=== PATIENT | male | born 1955 | race Caucasian/White ===

== ENCOUNTER 2017-10-05 09:40 | Inpatient (IN) | payer OTHER ==
[2017-10-05 10:31] LABS: Absolute Lymphocytes (CBC) 1.3 K/uL (0.7-4.9); Absolute Monocytes 0.5 K/uL (0.1-1.3); Absolute Neutrophil 6.6 K/uL (1.8-8.0); Basophils % 0.9 % (0-1.3); Hematocrit 50.2 % (39.6-49.0); Lymphocytes % 14.8 % (15.3-44.8); MCH 31.7 pg (27.0-35.0); MCV 97.1 fL (80-100); MPV 9.4 fL (7.6-11.3); Monocytes % 6.3 % (3.3-12.3); RBC Red Blood Cell Count 5.17 M/uL (4.33-5.43)
[2017-10-05 10:43] LABS: Protime INR 0.98
[2017-10-05] MEDS ORDERED: ASPIRIN 81 MG CHEWABLE TABLET ONE (10:52)
[2017-10-05] MEDS ORDERED: NA CHLORIDE 0.9% 1,000 ML ONE (10:53)
[2017-10-05] MEDS ORDERED: ONDANSETRON 4 MG/2 ML VIAL ONE (10:53)
[2017-10-05] MEDS ORDERED: MORPHINE 4 MG/ML SYR ONE (10:53)
--- NOTE | 2017-10-05 11:14 | RAD REPORT ---
EXAM DESCRIPTION: RAD - Chest Single View - 10/05/2017 10:38 am CLINICAL HISTORY: Chest pain, dyspnea COMPARISON: None. TECHNIQUE: AP portable chest image was obtained 1028 hours . FINDINGS: No peripheral mass or consolidation. No acute failure finding. CABG surgical changes are p resent. Pacemaker/ defibrillator is in place. Mild cardiomegaly is present without vascular engorgeme nt. No measurable pleural effusion and no pneumothorax. No gross bony abnormality seen. No acute aort ic findings suspected. IMPRESSION: Mild cardiomegaly without additional findings of acute failure or volume overload. No acute lung parenchymal finding. The
[2017-10-05 11:29] LABS: CKMB Creatine Kinase MB 2.1 ng/ml (0.3-4.0)
[2017-10-05 11:35] LABS: Albumin 4.9 g/dL (3.2-5.5); Bilirubin Direct 0.2 mg/dL (0-0.2); Bilirubin Total 0.8 mg/dL (0.3-1.2); Magnesium 1.8 mg/dL (1.8-2.5); Protein, Total 8.4 g/dL (6.0-8.3)
[2017-10-05 11:48] LABS: Potassium 5.5 mEq/L (3.6-5.0)
[2017-10-05 12:00] LABS: Urine Blood NEGATIVE (NEG); Urine Glucose NEGATIVE (NEG); Urine Protein NEGATIVE (NEG); Urine Specific Gravity 1.015 (1.005-1.030)
--- NOTE | 2017-10-05 12:17 | RAD REPORT ---
EXAM DESCRIPTION: CT - Chest For Pe Angio - 10/05/2017 11:51 am CLINICAL HISTORY: Chest pain, shortness of breath COMPARISON: Chest films same date TECHNIQUE: Dynamically enhanced 3 mm thick images of the chest were obtained during administration o f approximately 150mL Isovue 370 IV contrast. Coronal and oblique reconstruction images were generate d and reviewed. Exam utilizes a protocol to evaluate the pulmonary arterial tree. All CT scans are performed using dose optimization technique as appropriate and may include automated exposure control or mA/KV adjustment according to patient size. FINDINGS: No pulmonary emboli are identified. The aorta as imaged shows no acute or suspicious finding. No pericardial thickening or effusion. Card iomegaly is present particularly left ventricle enlargement. Pacemaker/defibrillator is in place. No infiltrate or mass in the lung parenchyma. No pleural effusion or pleural thickening. No mediastinal or hilar suspicious masses. No esophageal dilatation or mass identifiable. No rib lesi on or chest wall mass abnormality. Sternotomy wires are in place. There is a chronic fibrous union al anton the sternotomy site. IMPRESSION: No pulmonary emboli identified. No acute pleural or parenchymal process seen. Cardiomegaly with left ventricular enlargement.No pericardial effusion. No rib lesion, chest wall abnormality or other finding to explain left-sided chest pain.
--- NOTE | 2017-10-05 12:33 | EDPHYS ---
Physician Documentation [facility] Name: Umair Brown Age: 62 yrs Sex: Male : 1955 Arrival Date: 10/05/2017 Time: 09:46 Bed 4 Private MD: Todd Ochoa ED Physician Tyson Mcnulty HPI: 10/05 10:30 This 62 yrs old Male presents to ER via Ambulatory with complaints of Chest kim Pain, Back Pain, Shortness Of Breath. 10:30 The patient or guardian reports chest pain that is located primarily in the anterior kim chest wall, bilaterally. Historical: - Allergies: 09:57 PENICILLINS; hj - Home Meds: 09:57 Plavix 75 mg Oral tab 1 tab once daily [Active]; atorvastatin 80 mg oral tab 1 tab once hj daily [Active]; potassium chloride 20 mEq Oral TbTQ 1 tab once daily [Active]; metoprolol tartrate 50 mg Oral tab 1 tab 2 times per day [Active]; isosorbide dinitrate 40 mg Oral TbER 1 tab 2 times per day [Active]; furosemide 20 mg Oral tab 1 tab 2 times per day [Active]; - PMHx: 09:57 Hypertension; Hyperlipidemia; hj - PSHx: 09:57 defib; pacemaker; CABG; hj - Immunization history:: Adult Immunizations not up to date. - Social history:: Smoking status: Patient uses tobacco products, cigars. ROS: 10:30 Constitutional: Negative for fever, chills, and weight loss, Eyes: Negative for injury, kim pain, redness, and discharge, ENT: Negative for injury, pain, and discharge, Neck: Negative for injury, pain, and swelling, Cardiovascular: Negative for chest pain, palpitations, and edema, Respiratory: Negative for shortness of breath, cough, wheezing, and pleuritic chest pain, Abdomen/GI: Negative for abdominal pain, nausea, vomiting, diarrhea, and constipation, Back: Negative for injury and pain, : Negative for injury, bleeding, discharge, and swelling, MS/Extremity: Negative for injury and deformity, Skin: Negative for injury, rash, and discoloration, Neuro: Negative for headache, weakness, numbness, tingling, and seizure, Psych: Negative for depression, anxiety, suicide ideation, homicidal ideation, and hallucinations, Allergy/Immunology: Negative for hives, rash, and allergies, Endocrine: Negative for neck swelling, polydipsia, polyuria, polyphagia, and marked weight changes, Hematologic/Lymphatic: Negative for swollen nodes, abnormal bleeding, and unusual bruising. Exam: 10:30 Constitutional: This is a well developed, well nourished patient who is awake, alert, kim and in no acute distress. Head/Face: Normocephalic, atraumatic. Eyes: Pupils equal round and reactive to light, extra-ocular motions intact. Lids and lashes normal. Conjunctiva and sclera are non-icteric and not injected. Cornea within normal limits. Periorbital areas with no swelling, redness, or edema. ENT: Nares patent. No nasal discharge, no septal abnormalities noted. Tympanic membranes are normal and external auditory canals are clear. Oropharynx with no redness, swelling, or masses, exudates, or evidence of obstruction, uvula midline. Mucous membranes moist. Neck: Trachea midline, no thyromegaly or masses palpated, and no cervical lymphadenopathy. Supple, full range of motion without nuchal rigidity, or vertebral point tenderness. No Meningismus. Chest/axilla: Normal chest wall appearance and motion. Nontender with no deformity. No lesions are appreciated. Cardiovascular: Regular rate and rhythm with a normal S1 and S2. No gallops, murmurs, or rubs. Normal PMI, no JVD. No pulse deficits. Respiratory: Lungs have equal breath sounds bilaterally, clear to auscultation and percussion. No rales, rhonchi or wheezes noted. No increased work of breathing, no retractions or nasal flaring. Abdomen/GI: Soft, non-tender, with normal bowel sounds. No distension or tympany. No guarding or rebound. No evidence of tenderness throughout. Back: No spinal tenderness. No costovertebral tenderness. Full range of motion. Skin: Warm, dry with normal turgor. Normal color with no rashes, no lesions, and no evidence of cellulitis. MS/ Extremity: Pulses equal, no cyanosis. Neurovascular intact. Full, normal range of motion. Neuro: Awake and alert, GCS 15, oriented to person, place, time, and situation. Cranial nerves II-XII grossly intact. Motor strength 5/5 in all extremities. Sensory grossly intact. Cerebellar exam normal. Normal gait. Psych: Awake, alert, with orientation to person, place and time. Behavior, mood, and affect are within normal limits. Vital Signs: 09:58 BP 141 / 86; Pulse 81; Resp 18; Temp 97.7(TE); Pulse Ox 98% on R/A; Weight 108.86 kg; hj Height 6 ft. 0 in. (182.88 cm); Pain 1/10; 11:16 BP 106 / 83; Pulse 72; Resp 17; Pulse Ox 99% on R/A; ae1 12:36 Pulse 66; Resp 17; Pulse Ox 99% ; ae1 09:58 Body Mass Index 32.55 (108.86 kg, 182.88 cm) hj MDM: 10:05 Patient medically screened. [facility] 10:31 Data reviewed: vital signs, nurses notes, lab test result(s), EKG, radiologic studies, [facility] CT scan, plain films. 10/05 10:11 Order name: Basic Metabolic Panel; Complete Time: 12:18 [facility] 10/05 10:11 Order name: BNP; Complete Time: 12:18 [facility] 10/05 10:11 Order name: CBC with Diff; Complete Time: 12:18 [facility] 10/05 10:11 Order name: Ckmb; Complete Time: 12:18 [facility] 10/05 10:11 Order name: CPK; Complete Time: 12:18 [facility] 10/05 10:11 Order name: LFT's; Complete Time: 12:18 [facility] 10/05 10:11 Order name: Magnesium; Complete Time: 12:18 [facility] 10/05 10:11 Order name: PT-INR; Complete Time: 12:18 [facility] 10/05 10:11 Order name: Ptt, Activated; Complete Time: 12:18 [facility] 10/05 10:11 Order name: Troponin (emerg Dept Use Only); Complete Time: 12:18 [facility] 10/05 10:11 Order name: Lipase; Complete Time: 12:18 [facility] 10/05 10:11 Order name: D-Dimer; Complete Time: 12:18 [facility] 10/05 10:27 Order name: Blood Culture Adult (2) 10/05 10:27 Order name: Urine Culture [facility] 10/05 10:11 Order name: XRAY Chest (1 view); Complete Time: 12:18 10/05 10:27 Order name: Echo w/ Doppler [facility] 10/05 10:27 Order name: Blood Culture [facility] 10/05 10:34 Order name: CT Chest For PE Angio; Complete Time: 12:18 [facility] 10/05 10:34 Order name: Procalcitonin [facility] 10/05 11:54 Order name: Urine Dipstick--Ancillary (enter results); Complete Time: 12:18 10/05 13:05 Order name: Basic Metabolic Panel [facility] 10/05 13:31 Order name: Basic Metabolic Panel [facility] 10/05 10:11 Order name: EKG; Complete Time: 10:12 [facility] 10/05 10:11 Order name: Cardiac monitoring; Complete Time: 10:12 [facility] 10/05 10:11 Order name: EKG - Nurse/Tech; Complete Time: 10:12 [facility] 10/05 10:11 Order name: IV Saline Lock; Complete Time: 10:12 [facility] 10/05 10:11 Order name: Labs collected and sent; Complete Time: 10:12 [facility] 10/05 10:11 Order name: O2 Per Protocol; Complete Time: 10:12 [facility] 10/05 10:11 Order name: O2 Sat Monitoring; Complete Time: 10:12 [facility] 10/05 10:11 Order name: Urine Dipstick-Ancillary (obtain specimen); Complete Time: 12:35 [facility] 10/05 12:39 Order name: CONS Physician Consult [facility] Administered Medications: 10:34 Drug: NS 0.9% 1000 ml Route: IV; Rate: 125 ml/hr; Site: right antecubital; ae1 10:35 Drug: Aspirin 162 mg Route: PO; ae1 10:37 Drug: Zofran 4 mg Route: IVP; Site: right antecubital; ae1 10:39 Drug: morphine 2 mg Route: IVP; Site: right antecubital; ae1 12:34 Follow up: Response: Pain is decreased ae1 13:13 Drug: Lasix 20 mg Route: IVP; Site: right antecubital; ae1 14:19 Follow up: Response: Other; 600mls voided urine in urinal. ae1 13:19 Drug: Lovenox 1 mg/kg Route: Sub-Q; Site: right lower abdomen; ae1 15:01 Follow up: Response: No adverse reaction ae1 13:23 Not Given (FSBS 114, provider notified.): Insulin Regular Human 10 units IVP once ae1 14:19 Drug: Cefepime 1 grams Route: IVPB; Rate: 200 ml/hr; Infused Over: 30 mins; Site: right ae1 antecubital; 19:16 Follow up: IV Status: Infusion continued upon admission ae1 Disposition: 10/05/17 12:32 Hospitalization ordered by Goran Hernandez for Observation. Preliminary diagnosis are Other chest pain, Cardiomegaly, Hyperkalemia. - Bed requested for Telemetry/MedSurg (observation). - Status is Observation. ae1 - Condition is Fair. - Problem is new. - Symptoms have improved. UTI on Admission? No Signatures: Dispatcher [employer] EDTyson Estrella MD MD cha Gallardo, Ana ag Joaquin, Henry, RN RN Tiago Gunderson RN RN ae1
--- NOTE | 2017-10-05 12:33 | ER ---
Nurse's Notes [facility] Name: Umair Brown Age: 62 yrs Sex: Male : 1955 Arrival Date: 10/05/2017 Time: 09:46 Bed 4 Private MD: Todd Ochoa Diagnosis: Other chest pain;Cardiomegaly;Hyperkalemia Presentation: 10/05 09:52 Presenting complaint: Patient states: im having chest pain for 6-7 days, hx of heart hj problem and with defibrillator; reports L sided chest pain and SOB specially at night, awaken by SOB; pain radiates to L shoulder;. Transition of care: patient was not received from another setting of care. Onset of symptoms was October 05, 2017. Care prior to arrival: None. 09:52 Method Of Arrival: Ambulatory hj 09:52 Acuity: ARINA 3 hj Triage Assessment: :57 General: Appears in no apparent distress. uncomfortable, Behavior is calm, cooperative, hj appropriate for age. Pain: Complains of pain in chest. Cardiovascular: Capillary refill < 3 seconds Patient's skin is warm and dry. Historical: - Allergies: 09:57 PENICILLINS; hj - Home Meds: 09:57 Plavix 75 mg Oral tab 1 tab once daily [Active]; atorvastatin 80 mg oral tab 1 tab once hj daily [Active]; potassium chloride 20 mEq Oral TbTQ 1 tab once daily [Active]; metoprolol tartrate 50 mg Oral tab 1 tab 2 times per day [Active]; isosorbide dinitrate 40 mg Oral TbER 1 tab 2 times per day [Active]; furosemide 20 mg Oral tab 1 tab 2 times per day [Active]; - PMHx: 09:57 Hypertension; Hyperlipidemia; hj - PSHx: 09:57 defib; pacemaker; CABG; hj - Immunization history:: Adult Immunizations not up to date. - Social history:: Smoking status: Patient uses tobacco products, cigars. Screenin:16 Abuse screen: Denies threats or abuse. Nutritional screening: No deficits noted. ae1 Tuberculosis screening: No symptoms or risk factors identified. 14:50 Fall Risk No fall in past 12 months (0 pts). No secondary diagnosis (0 pts). IV access ae1 (20 points). Ambulatory Aid- None/Bed Rest/Nurse Assist (0 pts). Gait- Weak (10 pts.). Mental Status- Oriented to own ability (0 pts). Assessment: 09:57 Pain: Pain radiates to anterior aspect of left shoulder Pain began suddenly. hj 10:09 General: Appears in no apparent distress. uncomfortable, Behavior is cooperative, ae1 anxious. Pain: Complains of pain in xyphoid area and mid-sternal area. Neuro: Level of Consciousness is awake, alert, obeys commands, Oriented to person, place, time, situation. Neuro: Reports dizziness. Cardiovascular: Heart tones S1 S2 muffled Patient's skin is warm and dry. Respiratory: Airway is patent Respiratory effort is even, unlabored, Respiratory pattern is regular, symmetrical, Breath sounds are clear bilaterally. Breath sounds are diminished bilaterally. in left posterior lower lobe and right posterior lower lobe. GI: Abdomen is round Bowel sounds present X 4 quads. : No signs and/or symptoms were reported regarding the genitourinary system. EENT: wears glasses. . Derm: Skin is normal. Musculoskeletal: Reports pain in posterior cervical area, left trapezius and right trapezius Patient states at this time his pain in his neck is 2/10, but will wake him from sleep in shooting pains. 10:51 Reassessment: Spoke to lab via telephone and accepted critical lab value for patient, ae1 d-Dimer of 723, provider notified. 13:06 Reassessment: Provider notified of FSBS of 114, insulin cancelled and additional basic ae1 chemistry order, lab notified via telephone that an additional basic chemistry was ordered and on the way. 14:40 Reassessment: Report called to Shyla on 4th floor, receiving nurse via telephone. ae1 Registration notified that report has been called. Vital Signs: 09:58 BP 141 / 86; Pulse 81; Resp 18; Temp 97.7(TE); Pulse Ox 98% on R/A; Weight 108.86 kg; Height 6 ft. 0 in. (182.88 cm); Pain 1/10; 11:16 BP 106 / 83; Pulse 72; Resp 17; Pulse Ox 99% on R/A; ae1 12:36 Pulse 66; Resp 17; Pulse Ox 99% ; ae1 09:58 Body Mass Index 32.55 (108.86 kg, 182.88 cm) ED Course: 09:46 Patient arrived in ED. rg4 09:47 Todd Ochoa MD is Private Physician. rg4 09:54 Triage completed. hj 09:57 Arm band placed on left wrist. hj 09:58 desk monitor on. Pulse ox on. NIBP on. hj 09:58 Patient maintains SpO2 saturation greater than 95% on room air. hj 10:00 EKG done, by ED staff, reviewed by Tyson Mcnulty MD. jb1 10:05 Tyson Mcnulty MD is Attending Physician. kim 10:15 Tiago Gunderson, IZZY is Primary Nurse. ae1 10:16 Inserted saline lock: 18 gauge in right antecubital area, using aseptic technique. ae1 Blood collected. 10:36 Radiology exam delayed due to lab results not completed at this time. (BUN/Creatinine). 10:38 XRAY Chest (1 view) In Process Unspecified. EDMS 10:39 X-ray completed. Portable x-ray completed in exam room. kw1 10:53 Placed in gown. Bed in low position. Call light in reach. Side rails up X2. Cardiac ae1 monitor on. Pulse ox on. NIBP on. 11:48 CT completed. Patient tolerated procedure well. Patient moved to CT via stretcher. Patient moved back from CT. 11:51 CT Chest For PE Angio In Process Unspecified. EDMS 12:29 Goran Hernandez MD is Hospitalizing Provider. [facility] 15:06 No provider procedures requiring assistance completed. Patient admitted, IV remains in ae1 place. Administered Medications: 10:34 Drug: NS 0.9% 1000 ml Route: IV; Rate: 125 ml/hr; Site: right antecubital; ae1 10:35 Drug: Aspirin 162 mg Route: PO; ae1 10:37 Drug: Zofran 4 mg Route: IVP; Site: right antecubital; ae1 10:39 Drug: morphine 2 mg Route: IVP; Site: right antecubital; ae1 12:34 Follow up: Response: Pain is decreased ae1 13:13 Drug: Lasix 20 mg Route: IVP; Site: right antecubital; ae1 14:19 Follow up: Response: Other; 600mls voided urine in urinal. ae1 13:19 Drug: Lovenox 1 mg/kg Route: Sub-Q; Site: right lower abdomen; ae1 15:01 Follow up: Response: No adverse reaction ae1 13:23 Not Given (FSBS 114, provider notified.): Insulin Regular Human 10 units IVP once ae1 14:19 Drug: Cefepime 1 grams Route: IVPB; Rate: 200 ml/hr; Infused Over: 30 mins; Site: right ae1 antecubital; 19:16 Follow up: IV Status: Infusion continued upon admission ae1 Intake: Output: 11:00 Urine: 675ml (Voided); Total: 675ml. ae1 Outcome: 12:32 Decision to Hospitalize by Provider. kim 15:06 Admitted to Tele accompanied by tech, via stretcher, room 406, with chart, Report ae1 called to Shyla, receiving nurse. 15:06 Condition: stable 15:06 Instructed on the need for admit, Demonstrated understanding of instructions. 15:07 Patient left the ED. ae1 Signatures: Dispatcher [employer] EDRyan Spangler jb1 Tyson Mcnulty MD MD cha Jones, Susan sj Joaquin, Henry, RN RN hj Elliott, Andrea, RN RN ae1 Viky Hunter rg4 Jennifer Grijalva kw1 Corrections: (The following items were deleted from the chart) 10:00 09:58 Pulse 81bpm; Resp 18bpm; Pulse Ox 98% RA; Temp 97.7F Temporal; 108.86 kg; Height hj 6 ft. 0 in.; BMI: 32.5; Pain 1/10; hj 14:52 14:40 Reassessment: Report called to Shyla on 4th floor, receiving nurse via telephone. ae1 ae1
[2017-10-05] MEDS ORDERED: D50W 25 GM/50 ML SYRINGE IV PRN (12:36)
[2017-10-05] MEDS ORDERED: GLUCAGON 1 MG/VIAL IM PRN (12:36)
[2017-10-05] MEDS ORDERED: CEFEPIME 1 GM/100 ML BAG IV ONE (13:13)
[2017-10-05] MEDS ORDERED: ENOXAPARIN 100 MG/ML SYR SQ ONE (13:13)
--- NOTE | 2017-10-05 15:59 | ECHO ---
HEIGHT: 6 ft 0 in WEIGHT: 240 lb 0 oz DATE OF STUDY: 10/05/[address]: Tyson Mcnulty MD 2-DIMENSIONAL: YES M.MODE: YES DOPPLER: YES COLOR FLOW: YES TDS: NO PORTABLE: YES DEFINITY: NO BUBBLE STUDY: NO DIAGNOSIS: SHORTNESS OF BREATH CARDIAC HISTORY: CATHERIZATION: YES SURGERY: CABGx3 PROSTHETIC VALVE: NO PACEMAKER: YES MEASUREMENTS (cm) DIASTOLIC (NORMALS) SYSTOLIC (NORMALS) IVSd 1.5 (0.6-1.2) LA Diam (1.9-4.0) LVEF 13% LVIDd 6.6 (3.5-5.7) LVIDs 6.2 (2.0-3.5) %FS 6% LVPWd 1.3 (0.6-1.2) Ao Diam 3.3 (2.0-3.7) 2 DIMENSIONAL ASSESSMENT: RIGHT ATRIUM: DILATED LEFT ATRIUM: DILATED RIGHT VENTRICLE: DILATED/PACEMAKER LEFT VENTRICLE: DILATED TRICUSPID VALVE: NORMAL MITRAL VALVE: NORMAL PULMONIC VALVE: NORMAL AORTIC VALVE: NORMAL PERICARDIAL EFFUSION: NONE AORTIC ROOT: NORMAL LEFT VENTRICULAR WALL MOTION: SEVERE GLOBAL HYPOKINESIS. DOPPLER/COLOR FLOW: NORMAL. COMMENTS: FOUR CHAMBER DILATATION. SEVERELY DEPRESSED LEFT VENTRICULAR EJECTION FRACTION. PACEMAKER CATHETER IN RIGHT VENTRICLE. TECHNOLOGIST: DIAMOND SANTIZO
--- NOTE | 2017-10-05 16:21 | EKG ---
Test Date: 2017-10-05 Test Time: 10:08:34 [employer] Technician: ISAIAH MEASUREMENT RESULTS: Intervals: Rate: 77 IN: 136 QRSD: 160 QT: 428 QTc: 484 [place]: P: 50 IN: 136 QRS: 173 T: -3 INTERPRETIVE STATEMENTS: Atrial-sensed ventricular-paced rhythm Biventricular pacemaker detected Abnormal ECG No previous ECG available for comparison Electronically Signed On 10-05-17 16:19:50 CDT by Jorge A Loyd
[2017-10-05] MEDS: INSULIN -REGULAR HUMAN 50 UNIT/0.5 ML ML SQ SCH ×2 (16:30→21:00)
--- NOTE | 2017-10-05 16:46 | P.HP ---
Certification for Inpatient Patient admitted to: Observation With expected LOS: <2 Midnights Patient will require the following post-hospital care: None Practitioner: I am a practitioner with admitting privileges, knowledge of patient current condition, hospital course, and medical plan of care. Services: Services provided to patient in accordance with Admission requirements found in Title 42 Section 412.3 of the Code of Federal Regulations Patient History Date of Service: 10/05/17 Reason for admission: The breath History of Present Illness: This is 62-year-old man with a history hypertension hyperlipidemia coronary artery disease status to the bypass surgery and severe congestive heart failure with ejection fraction range of of 13-15% for the past 10 years and history of pacemaker placement who was brought in emergency room because of progressive short of breath and chest pain in the past 3 weeks. The patient have a chronic baseline [id number] due to severe congestive heart failure; however, in the past 3 weeks he noticed more pronounced [id number]. In the past 3 days , the patient also have left-sided chest pain worsening with body position changes and the patient believed that the chest pain is from neck problems Allergies Penicillins Allergy (Verified 10/05/17 13:07) UNK Home Medications: Atorvastatin Calcium [Lipitor] 1 tab PO BEDTIME 10/05/17 Clopidogrel Bisulfate [Plavix*] 1 tab PO BEDTIME 10/05/17 Furosemide [Lasix*] 1 tab PO BID 10/05/17 Isosorbide Dinitrate [Isordil] 1 tab PO BID 10/05/17 Lisinopril [Prinivil*] 1 tab PO BID 10/05/17 Metoprolol Succinate [Toprol Xl*] 50 mg PO BID 10/05/17 Potassium Bicarbonate/Cit AC [Effer-K 20 Meq Tablet Eff] 2 tab PO BEDTIME Trazodone [Desyrel*] 1 tab PO BEDTIME 10/05/17 - Past Medical/Surgical History Has patient received pneumonia vaccine in the past: Yes Diabetic: No -: HTN -: HIGH CHOLESTEROL -: CHF -: CABG X4 BYPASSES 2004 -: PACEMAKER/DEFIB - Family History Father -: Heart disease, Hypertension Mother -: Cancer - Social History Smoking Status: Current some day smoker Alcohol use: Yes CD- Drugs: Yes Caffeine use: Yes Place of Residence: Home Review of Systems 10-point ROS is otherwise unremarkable Physical Examination - Vital Signs Temperature: 98.4 F Blood Pressure: 127/73 Pulse: 77 Respirations: 18 - Physical Exam General: Alert, In no apparent distress HEENT: Atraumatic, PERRLA, Mucous membr. moist/pink, EOMI, Sclerae nonicteric Neck: Supple, 2+ carotid pulse no bruit, No LAD, Without JVD or thyroid abnormality Respiratory: Clear to auscultation bilaterally, Normal air movement Cardiovascular: Regular rate/rhythm, Normal S1 S2 Gastrointestinal: Normal bowel sounds, No tenderness Musculoskeletal: No tenderness Integumentary: No rashes Neurological: Normal gait, Normal speech, Normal strength at 5/5 x4 extr, Normal tone, Normal affect Lymphatics: No axilla or inguinal lymphadenopathy - Studies Laboratory Data (last 24 hrs) 10/05/17 10:05: PT 11.6, INR 0.98, APTT 27.1 10/05/17 10:05: WBC 8.6, Hgb 16.4, Hct 50.2 H, Plt Count 263 10/05/17 10:05: B-Natriuretic Peptide 420 H 10/05/17 10:05: Sodium 137, Potassium 5.5 H, BUN 16, Creatinine 1.08, Glucose 335 H, Magnesium 1.8, Total Bilirubin 0.8, AST 36, ALT 43, Alkaline Phosphatase 58, Lipase 32 Assessment and Plan - Problems (Diagnosis) (1) Chest pain Current Visit: Yes Status: Acute Qualifiers: Chest pain type: unspecified Qualified Code(s): R07.9 - Chest pain, unspecified (2) Congestive heart failure Current Visit: Yes Status: Chronic Qualifiers: Heart failure type: systolic Heart failure chronicity: chronic Qualified Code(s): I50.22 - Chronic systolic (congestive) heart failure (3) Essential hypertension Current Visit: Yes Status: Chronic (4) Hyperlipidemia Current Visit: Yes Status: Chronic Qualifiers: Hyperlipidemia type: unspecified Qualified Code(s): E78.5 - Hyperlipidemia , unspecified (5) Coronary artery disease Current Visit: Yes Status: Chronic Qualifiers: Coronary Disease-Associated Artery/Lesion type: bypass graft, nonautologous biological Associated angina: with stable angina Qualified Code(s): I25.738 - Atherosclerosis of nonautologous biological coronary artery bypass graft(s) with other forms of angina pectoris (6) History of heart bypass surgery Current Visit: Yes Status: Chronic (7) History of permanent cardiac pacemaker placement Current Visit: Yes Status: Chronic - Plan --the patient with severe congestive heart failure and short of breath and chest pain --troponin x3 --morphine the chest pain --neck CT --console cardiology --resume home medicine -- - Advance Directives Does patient have a Living Will: No Does patient have a Durable POA for Healthcare: No
[2017-10-05] MEDS ORDERED: FUROSEMIDE 20 MG/ 2ML VIAL IV SCH (17:00)
[2017-10-05] MEDS: MORPHINE 4 MG/ML SYR IV PRN ×2 (17:10→20:52)
--- NOTE | 2017-10-05 18:38 | CON ---
History Of Present Illness: Mr. Brown came to the hospital because he has had a 2-week history of paroxysmal nocturnal dyspnea and pain in his left shoulder. It is in the neck, shoulder, radiates in electrical type pains down his left arm. He sleeps very poorly when he lays very flat, he has to si t up. When he sits up all the time he gets the musculoskeletal pain like he is talking about. He khalil s been using aspirin some 20-30 per day. He has not really counted. Outpatient medications are Plav ix, atorvastatin, potassium, chloride, metoprolol, isosorbide dinitrate, furosemide, once or twice pe r day. He is not on an angiotensin-converting enzyme inhibitor or JHONNY inhibitor, not sure why. He h as a history of bypass surgery. Cardiomyopathy, EF 16% range, history of bypass surgery. Apparently even before his bypass surgery, he had the cardiomyopathy or a depressed ejection fraction. Physical Examination: General: Mr. Brown appears to be his stated age. He is alert, oriented, pleasant, mildly obese, n ot in any distress. Prefers sitting up. Lungs: Do not reveal crackles. Heart: Reveals a S3 gallop. Apical impulse is laterally displaced. There is a holosystolic murmur. His echocardiogram shows EF 20-25%. The pacemaker in the right ventricular apex. All 4 chambers are markedly dilated. Laboratory Data: Reveals he is hemoconcentrated. He has a creatinine of 0.98. Troponins are less t padilla 0.03. His electrocardiogram does not suggest that he is having an acute WA or any particular pro blem. Impression: Mr. Brown is a gentleman with chronic cardiomyopathy, it is probably a little out of c ontrol. He is less than optimally treated. I recommended to him that we give him Entresto to take i n addition to his metoprolol. He probably needs a little bit of diuresis, although the chest x-ray i s not really consistent with pulmonary edema, his symptoms are. So I would recommend that while we evaluate him for his neck prob aziza, we diurese him and start Entresto. SH/MODL Voice ID: [id number] Report ID: [id number]
--- NOTE | 2017-10-05 18:49 | RAD REPORT ---
EXAM DESCRIPTION: CT - C Spine Wo Con - 10/05/2017 5:40 pm CLINICAL HISTORY: Neck pain/radiculopathy COMPARISON: None. TECHNIQUE: Computed axial tomography of the cervical spine were obtained with sagittal and coronal r econstruction images generated and reviewed. All CT scans are performed using dose optimization technique as appropriate and may include automated exposure control or mA/KV adjustment according to patient size. FINDINGS: A cervical fracture is not seen. Left facet hypertrophy at C2-3 results in marked narrowing of the left neural foramina. Left facet hypertrophy at C3-4 results in moderate left foraminal stenosis a 11 millimeter structure is present within the left lateral aspect of the spinal canal appearing to compress the spinal cord. Small central disc herniation is present at C4-5 Mild posterior subluxation of C5 on C6 is seen. A small central disc osteophyte complex mildly encroa ches upon the thecal sac. Osteophytes and facet hypertrophy result in mild to moderate narrowing of t he right neural foramina. C6-7 and C7-T1 demonstrate no significant abnormality . Evaluation for spinal canal masses is somewhat limited on CAT scan IMPRESSION: A cervical fracture is not seen. 11 millimeter soft tissue structure C3-4 within the left lateral aspect of the spinal canal may repre sent a disc extrusion, synovial cyst or neoplasm Small central disc osteophyte complex C5-6 Spondylosis C2-3 resulting in marked left foraminal stenosis .
[2017-10-05] MEDS: METOPROLOL TAR 50 MG TAB PO SCH (20:51)
[2017-10-05] MEDS: SACUBITRIL/VALSARTAN 24/26 MG TAB PO SCH (20:51)
[2017-10-05] MEDS: ISOSORBIDE DINIT 20 MG TAB PO SCH (20:52)
[2017-10-05] MEDS ORDERED: POTASSIUM BICARBONATE PO SCH (21:00)
[2017-10-05] MEDS ORDERED: TRAZODONE 50 MG TABLET PO SCH (21:00)
[2017-10-05] MEDS ORDERED: LISINOPRIL 20 MG TAB PO SCH (21:00)
[2017-10-05] MEDS ORDERED: CIT AC PO SCH (21:00)
[2017-10-05] MEDS ORDERED: METOPROLOL XL 50 MG TAB PO SCH (21:00)
[2017-10-05] MEDS ORDERED: CEFEPIME/SWI 1gm 1 GM/10 ML SYR IV SCH (21:00)
[2017-10-05] MEDS ORDERED: ISOSORBIDE DINITRATE PO SCH (21:00)
[2017-10-05] MEDS ORDERED: CEFEPIME 1 GM/VIAL IV SCH (21:00)
[2017-10-05] MEDS ORDERED: ATORVASTATIN 80 MG TAB PO SCH (21:00)
[2017-10-05] MEDS ORDERED: CLOPIDOGREL 75 MG TABLET PO SCH (21:00)
[2017-10-06] MEDS: HYDROCODONE/APAP 10/325 TAB PO PRN ×3 (02:08→18:11)
[2017-10-06] MEDS: INSULIN -REGULAR HUMAN 50 UNIT/0.5 ML ML SQ SCH ×4 (07:30→16:30)
[2017-10-06] MEDS: METOPROLOL TAR 50 MG TAB PO SCH (08:16)
[2017-10-06] MEDS: ISOSORBIDE DINIT 20 MG TAB PO SCH (08:17)
[2017-10-06] MEDS ORDERED: CLOPIDOGREL 75 MG TABLET PO SCH (09:00)
[2017-10-06] MEDS ORDERED: FUROSEMIDE 40 MG TABLET PO SCH (09:00)
[2017-10-06] MEDS ORDERED: ASPIRIN EC 81 MG TAB PO SCH (09:00)
[2017-10-06] MEDS: SACUBITRIL/VALSARTAN 24/26 MG TAB PO SCH (09:00)
[2017-10-06] MEDS: MORPHINE 4 MG/ML SYR IV PRN (11:45)
--- NOTE | 2017-10-06 15:34 | P.PN ---
Subjective Date of Service: 10/06/17 Chief Complaint: The breath Patient had persistent neck pain CT scan the neck shows C3-C4 spinal canal all soft tissue mass measuring 1.1 cm Discussed with neurosurgeon and hospice as [facility] and a decision was to is transfer patient Physical Examination - Vital Signs Temperature: 97.7 F Blood Pressure: 78/52 Pulse: 70 Respirations: 18 Pulse Ox (%): 97 - Physical Exam General: Alert, In no apparent distress HEENT: Atraumatic, PERRLA, EOMI Neck: Supple, JVD not distended Respiratory: Clear to auscultation bilaterally, Normal air movement Cardiovascular: Regular rate/rhythm, Normal S1 S2 Gastrointestinal: Normal bowel sounds, No tenderness Musculoskeletal: No tenderness Integumentary: No rashes Neurological: Normal speech, Normal tone, Normal affect Lymphatics: No axilla or inguinal lymphadenopathy - Studies Medications List Reviewed: Yes Assessment And Plan - Current Problems (Diagnosis) (1) Chest pain Onset Date: 10/06/17 Current Visit: Yes Status: Acute Qualifiers: Chest pain type: unspecified Qualified Code(s): R07.9 - Chest pain, unspecified (2) Congestive heart failure Onset Date: 10/06/17 Current Visit: Yes Status: Chronic Qualifiers: Heart failure type: systolic Heart failure chronicity: chronic Qualified Code(s): I50.22 - Chronic systolic (congestive) heart failure (3) Essential hypertension Onset Date: 10/06/17 Current Visit: Yes Status: Chronic (4) Hyperlipidemia Onset Date: 10/06/17 Current Visit: Yes Status: Chronic Qualifiers: Hyperlipidemia type: unspecified Qualified Code(s): E78.5 - Hyperlipidemia , unspecified (5) Coronary artery disease Onset Date: 10/06/17 Current Visit: Yes Status: Chronic Qualifiers: Coronary Disease-Associated Artery/Lesion type: bypass graft, nonautologous biological Associated angina: with stable angina Qualified Code(s): I25.738 - Atherosclerosis of nonautologous biological coronary artery bypass graft(s) with other forms of angina pectoris (6) History of heart bypass surgery Current Visit: Yes Status: Chronic (7) History of permanent cardiac pacemaker placement Current Visit: Yes Status: Chronic - Plan --the patient with severe congestive heart failure and short of breath and chest pain Cervical C3-C4 mass --Discussed with neurosurgeon and hospice as [facility] and a decision was to is transfer patient to her --morphine the chest pain --continue other medications
--- NOTE | 2017-10-06 22:09 | PN ---
Date of Progress Note: 10/06/2017 I saw the patient in followup on 10/06/2017. Dr. Loyd had seen him on 10/05/2017. He had severe c ardiomyopathy with ejection fraction of 16%. Dr. Loyd started him on Entresto yesterday. The akua ent does not like the medicine. It made him very hypotensive, enough where he could not get any pain medication for his left shoulder, which is really the main reason he came to the hospital. He was v bahman adamant about not taking the medication because of low blood pressure and not being able to affor d it as an outpatient. Anyway, he goes to the [facility] for his medicines. We will discontinue th e Entresto. Continue his previous medication. He should be on a beta jeffrey, JHONNY inhibitor, Lasix, and aspirin. Workup regarding his neck should continue. He probably has cervical spondylosis causi ng his symptoms. The patient can go home whenever it is okay with Dr. Hernandez, and he is to follow up with the [facility] as usual. CODY/NORA Voice ID: [id number] Report ID: [id number]
--- NOTE | 2017-10-07 17:58 | P.DS ---
Admission Date: 10/05/17 Discharge Date: 10/06/17 Disposition: TRANSFER TO [facility] Discharge Condition: FAIR Reason for Admission: The breath - Problems (1) Chest pain Onset Date: 10/06/17 Status: Acute Qualifiers: Chest pain type: unspecified Qualified Code(s): R07.9 - Chest pain, unspecified (2) Congestive heart failure Onset Date: 10/06/17 Status: Chronic Qualifiers: Heart failure type: systolic Heart failure chronicity: chronic Qualified Code(s): I50.22 - Chronic systolic (congestive) heart failure (3) Essential hypertension Onset Date: 10/06/17 Status: Chronic (4) Hyperlipidemia Onset Date: 10/06/17 Status: Chronic Qualifiers: Hyperlipidemia type: unspecified Qualified Code(s): E78.5 - Hyperlipidemia , unspecified (5) Coronary artery disease Onset Date: 10/06/17 Status: Chronic Qualifiers: Coronary Disease-Associated Artery/Lesion type: bypass graft, nonautologous biological Associated angina: with stable angina Qualified Code(s): I25.738 - Atherosclerosis of nonautologous biological coronary artery bypass graft(s) with other forms of angina pectoris (6) History of heart bypass surgery Status: Chronic (7) History of permanent cardiac pacemaker placement Status: Chronic Brief History of Present Illness: This is 62-year-old man with a history hypertension hyperlipidemia coronary artery disease status to the bypass surgery and severe congestive heart failure with ejection fraction range of of 13-15% for the past 10 years and history of pacemaker placement who was brought in emergency room because of progressive short of breath and chest pain in the past 3 weeks. The patient have a chronic baseline kieao-[id number] due to severe congestive heart failure; however, in the past 3 weeks he noticed more pronounced rbhpj-js-peaweu. In the past 3 days , the patient also have left-sided chest pain worsening with body position changes and the patient believed that the chest pain is from neck problems Hospital Course: The patient admitted hospital for chest pain. 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 The patient is transferred to [facility] for further evaluation and treatment Vital Signs/Physical Exam: Temp Pulse Resp BP Pulse Ox 97 F 78 18 111/72 95 10/06/17 16:00 10/06/17 16:00 10/06/17 16:00 10/06/17 18:13 10/06/17 16:00 General: Alert, In no apparent distress HEENT: Atraumatic, PERRLA, EOMI Neck: Supple, JVD not distended Respiratory: Clear to auscultation bilaterally, Normal air movement Cardiovascular: Regular rate/rhythm, Normal S1 S2 Gastrointestinal: Normal bowel sounds, No tenderness Musculoskeletal: No tenderness Integumentary: No rashes Neurological: Normal speech, Normal tone, Normal affect Lymphatics: No axilla or inguinal lymphadenopathy Laboratory Data at Discharge: WBC 8.6 K/uL (4.3-10.9) 10/05/17 10:05 Hgb 16.4 g/dL (13.6-17.9) 10/05/17 10:05 Hct 50.2 % (39.6-49.0) H 10/05/17 10:05 Plt Count 263 K/uL (152-406) 10/05/17 10:05 PT 11.6 SECONDS (9.5-12.5) 10/05/17 10:05 INR 0.98 10/05/17 10:05 APTT 27.1 SECONDS (24.3-36.9) 10/05/17 10:05 Sodium 134 mEq/L (135-145) L 10/05/17 13:09 Potassium 5.0 mEq/L (3.6-5.0) 10/05/17 13:09 BUN 15 mg/dL (6-20) 10/05/17 13:09 Creatinine 0.98 mg/dL (0.61-1.24) 10/05/17 13:09 Glucose 126 mg/dL (65-120) H 10/05/17 13:09 Magnesium 1.8 mg/dL (1.8-2.5) 10/05/17 10:05 Total Bilirubin 0.8 mg/dL (0.3-1.2) 10/05/17 10:05 AST 36 IU/L (10-42) 10/05/17 10:05 ALT 43 IU/L (10-60) 10/05/17 10:05 Alkaline Phosphatase 58 IU/L (42-121) 10/05/17 10:05 B-Natriuretic Peptide 420 pg/ml (<=100) H 10/05/17 10:05 Lipase 32 U/L (22-51) 10/05/17 10:05 Home Medications: Atorvastatin Calcium [Lipitor] 1 tab PO BEDTIME 10/05/17 Clopidogrel Bisulfate [Plavix*] 1 tab PO BEDTIME 10/05/17 Furosemide [Lasix*] 1 tab PO BID 10/05/17 Isosorbide Dinitrate [Isordil] 1 tab PO BID 10/05/17 Lisinopril [Prinivil*] 1 tab PO BID 10/05/17 Metoprolol Succinate [Toprol Xl*] 50 mg PO BID 10/05/17 Potassium Bicarbonate/Cit AC [Effer-K 20 Meq Tablet Eff] 2 tab PO BEDTIME Trazodone [Desyrel*] 1 tab PO BEDTIME 10/05/17 Clopidogrel Bisulfate [Plavix*] 75 mg PO DAILY tablet 10/06/17 Furosemide [Lasix*] 40 mg PO DAILY tab 10/06/17 Hydrocodone 10/APAP 325 [Coram 10/325*] 1 tab PO Q6H PRN tab 10/06/17 Insulin -Regular Human [Novolin -R*] See Protocol SQ ACHS ml 10/06/17 Isosorbide Dinit [Isordil*] 40 mg PO BID tab 10/06/17 Metoprolol Tartrate [Lopressor*] 50 mg PO BID tab 10/06/17 Morphine [Morphine Sulfate*] 4 mg IV Q4H PRN syr 10/06/17 Trazodone [Desyrel*] 50 mg PO BEDTIME tablet 10/06/17 Diet: AHA Activity: Fall precautions Time spent managing pt's care (in minutes): 35
== END 2017-10-06 19:03 | disposition short-term general hospital (02) | DRG 313 ==
LOC: ER 09:40 → ERHOLD 12:34 → 4TH 14:41
PROVIDERS: ADMIT Internal Medicine Hematology & Oncology; ATTEND Internal Medicine Hematology & Oncology
DX: R07.9 Chest pain, unspecified (principal); I50.22 Chronic systolic (congestive) heart failure; D49.2 Neoplasm of unspecified behavior of bone, soft tissue, and skin; I11.0 Hypertensive heart disease with heart failure; I25.10 Atherosclerotic heart disease of native coronary artery without angina pectoris; Z95.1 Presence of aortocoronary bypass graft; E78.5 Hyperlipidemia, unspecified; Z95.0 Presence of cardiac pacemaker
CPT/HCPCS: 36415; 71045; 71275; 72125; 80048; 80076; 81003; 82550; 82553; 82962; 83690; 83735; 83880; 84145; 84484; 85025; 85379; 85610; 85730; 87040; 87086; 87088; 93005; 93306; 96365; 96366; 96372; 96375; 99285; J0692; J1650; J1940; J2405; J7030; Q9967

== ENCOUNTER 2017-10-10 16:45 | Emergency (ER) | payer OTHER ==
--- OUTSIDE RECORDS SUMMARY | 2017-10-10 16:47 | XMS REPORT | Clinical Summary ---
:1955 Author Organization [facility] Address [address] [place] [address] Phone Care Team Providers Name Role Phone Unavailable Primary Care Provider Unavailable Allergies Active Allergy Reactions Severity Noted Date Comments Penicillins Hives Low 10/06/2017 Current Medications Prescription Sig. Disp. Refills Start Date End Date Status metoprolol (TOPROL-XL) 50 Take 75 mg by Active MG 24 hr tabletIndications: mouth daily. hypertension lisinopril Take 20 mg by Active (PRINIVIL,ZESTRIL) 20 MG mouth daily. tabletIndications: hypertension atorvastatin (LIPITOR) 80 Take 80 mg by Active MG tabletIndications: mouth daily. hyperlipidemia potassium chloride SA Take 10 mEq by Active (K-DUR,KLOR-CON) 10 MEQ mouth 2 (two) tablet times daily. isosorbide dinitrate Take 20 mg by Active (ISORDIL) 20 MG tablet mouth 2 (two) times daily. furosemide (LASIX) 20 MG Take 20 mg by Active tablet mouth 2 (two) times daily. 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) (Primary Dx);Chronic systolic congestive heart failure (HCC);Neck pain after 10/09/2016 Social History Tobacco Use Types Packs/Day Years Used Date Never Smoker Smokeless Tobacco: Never Used Tobacco Cessation: Counseling Given: No Alcohol Use Drinks/Week oz/Week Comments No Sex Assigned at Date Recorded Not on file Last Filed Vital Signs Vital Sign Reading Time Taken Blood Pressure 128/87 10/10/2017 8:00 AM CDT Pulse 93 10/10/2017 8:00 AM CDT Temperature 36.4 C (97.6 F) 10/10/2017 8:00 AM CDT Respiratory Rate 18 10/10/2017 8:00 AM CDT Oxygen Saturation 99% 10/10/2017 8:00 AM CDT Inhaled Oxygen Concentration - - Weight 108.9 kg (240 lb) 10/06/2017 9:00 PM CDT Height 180.3 cm (5' 11") 10/06/2017 9:00 PM CDT Body Mass Index 33.47 10/06/2017 9:00 PM CDT Plan of Treatment Not on file Results CT spine cervical with IV contrast (10/09/2017 8:44 AM) Specimen Performing Laboratory [facility] Narrative FINAL REPORT CT cervical spine with IV contrast Comparison: Post myelogram CT October 08 Reason for exam: Primary tumors cervical spine Discussion: Multiple axial CT images of the cervical spine were provided after IV contrast evaluated in bone and soft tissue windows. Sagittal and coronal 2D reconstructions were provided as well. Dose modulation, iterative reconstruction, and/or weight based adjustment of the mA/kV was utilized to reduce the radiation dose to as low as reasonably achievable. Refer to the post myelogram CT for discussion of spinal canal and foraminal degenerative stenosis. The extradural lesion seen within the left side of the spinal canal at the C3/4 and C4 levels is again noted. Peripheral portions of the lesion have a mildly hyperdense appearance with low-density in the central component. Differential is unchanged with synovial cyst being the top consideration. Meningioma and nerve sheath tumor are considered less likely. No other visible soft tissue tumor. No other concerning enhancement. Degenerative cervical spine changes are noted with particular hypertrophic degenerative facet involvement on the left at multiple levels. Bilateral carotid bifurcation atherosclerotic calcifications are again noted left greater than right with potentially significant stenosis. Impressions: Intraspinal lesion on the left centered at the upper C4 level, probably a synovial cyst. No other visible enhancing lesion. Signed: Kan Bahena MD Report Verified Date/Time:10/09/2017 10:09:51 Reading Location: [facility] C013V Neuro Reading Room Procedure Note Interface, External Ris In - 10/09/2017 10:11 AM CDT FINAL REPORT CT cervical spine with IV contrast Comparison: Post myelogram CT October 08 Reason for exam: Primary tumors cervical spine Discussion: Multiple axial CT images of the cervical spine were provided after IV contrast evaluated in bone and soft tissue windows. Sagittal and coronal 2D reconstructions were provided as well. Dose modulation, iterative reconstruction, and/or weight based adjustment of the mA/kV was utilized to reduce the radiation dose to as low as reasonably achievable. Refer to the post myelogram CT for discussion of spinal canal and foraminal degenerative stenosis. The extradural lesion seen within the left side of the spinal canal at the C3/4 and C4 levels is again noted. Peripheral portions of the lesion have a mildly hyperdense appearance with low-density in the central component. Differential is unchanged with synovial cyst being the top consideration. Meningioma and nerve sheath tumor are considered less likely. No other visible soft tissue tumor. No other concerning enhancement. Degenerative cervical spine changes are noted with particular hypertrophic degenerative facet involvement on the left at multiple levels. Bilateral carotid bifurcation atherosclerotic calcifications are again noted left greater than right with potentially significant stenosis. Impressions: Intraspinal lesion on the left centered at the upper C4 level, probably a synovial cyst. No other visible enhancing lesion. Signed: Kan Bahena MD Report Verified Date/Time: 10/09/2017 10:09:51 Reading Location: [address] Neuro Reading Room Phosphorus (10/09/2017 3:19 AM)Only the most recent of3 resultswithin the time period is included. Component Value Ref Range Phosphorus 3.7 2.3 - 4.7 mg/dL Specimen Performing Laboratory Blood [address] [address] Magnesium (10/09/2017 3:19 AM)Only the most recent of3 resultswithin the time period is included. Component Value Ref Range Magnesium 2.0 1.6 - 2.6 mg/dL Specimen Performing Laboratory Blood [address] [address] Basic metabolic panel (10/09/2017 3:19 AM)Only the most recent of3 resultswithin the time period is included. Component Value Ref Range Sodium 134 (L) 136 - 145 meq/L Potassium 4.8 3.5 - 5.1 meq/L Chloride 98 98 - 107 meq/L CO2 25 22 - 29 meq/L BUN 28 (H) 7 - 21 mg/dL Creatinine 1.02 0.57 - 1.25 mg/dL Glucose 120 (H) 70 - 105 mg/dL Calcium 10.4 (H) 8.4 - 10.2 mg/dL EGFR 74Comment: ESTIMATED GFR IS NOT ACCURATE mL/min/1.73 sq m CREATININE CLEARANCE IN PREDICTING GLOMERULAR FILTRATION RATE. ESTIMATED GFR IS NOT APPLICABLE FOR DIALYSIS PATIENTS. Specimen Performing Laboratory Blood [facility] [address] [address] [address] myelogram cervical w/injection and fluoro (10/08/2017 4:46 PM) Specimen Performing Laboratory [employer] RIS Narrative FINAL REPORT CT cervical spine postmyelogram Comparison: None Reason for exam: Neck mass Discussion: Multiple axial CT images of the cervical spine were provided after myelography evaluated in bone and soft tissue windows. Sagittal and coronal 2D reconstructions were provided as well.Dose modulation, iterative reconstruction, and/or weight based adjustment of the mA/kV was utilized to reduce the radiation dose to as low as reasonably achievable. Skull base to C3: There is substantial hypertrophic left-sided C2/3 facet arthrosis with severe left-sided osseous C2/3 foraminal stenosis. No central canal stenosis. The right foramen is patent. C 3/4: There is substantial left-sided hypertrophic facet arthrosis with severe left-sided osseous foraminal stenosis. Right foramen is patent. There is soft tissue density occupying the left-sided lateral aspect of the canal, probably compromising the left-sided C4 nerve root. There is chronic flattening of the left side of the cord and the cord is mildly displaced to the right. There is mild transverse central canal stenosis. This soft tissue lesion has dimensions 1 cm transverse, 1.2 cm AP, 1.4 cm craniocaudal. C4/5: There is substantial left-sided facet arthrosis with severe left-sided osseous foraminal stenosis. There is a small central disc protrusion with mild ventral cord indentation but no significant central canal stenosis. Right foramen is patent. C 5/6: There is spondylosis and a dorsal central spondylotic disc protrusion. There is relative canal narrowing and chronic ventral cord indentation no significant central canal stenosis. There is bilateral moderate osseous foraminal stenosis. C6/7: Negative C7/T1: Negative No other visible soft tissue neck mass. There is bilateral carotid bifurcation region atherosclerotic calcification with findings concerning for significant bilateral carotid bifurcation stenosis. Pacemaker leads are seen in the upper chest. Incidental note is made of left-sided maxillary sinus chronic mucosal thickening. Additionally, there is a small somewhat irregular osteoma extending posteriorly from the mandibular mentum into the floor of mouth of doubtful clinical relevance. Impressions: 1. Multilevel degenerative spine disease with multilevel substantial left-sided hypertrophic facet arthrosis. Osseous foraminal stenoses detailed above should be correlated with corresponding specific radiculopathy. 2. Soft tissue density occupying the left-sided spinal canal at the C4 level probably compromises the left C4 nerve root. Consider close proximity to substantial facet arthrosis, and given the absence of acute destructive bone process, top consideration is unusual presentation of intracanalicular cervical level synovial cyst. Extended differential would include meningioma, nerve sheath tumor, and other malignancies all thought to be less likely. 3. Incidental carotid bifurcation atherosclerotic disease, concerning for hemodynamically significant. Consider follow-up vascular imaging when clinically appropriate. Signed: Kan Bahena MD Report Verified Date/Time:10/09/2017 07:20:31 Reading Location: [address] Neuro Reading Room Procedure Note Interface, External Ris In - 10/09/2017 7:22 AM CDT FINAL REPORT CT cervical spine postmyelogram Comparison: None Reason for exam: Neck mass Discussion: Multiple axial CT images of the cervical spine were provided after myelography evaluated in bone and soft tissue windows. Sagittal and coronal 2D reconstructions were provided as well. Dose modulation, iterative reconstruction, and/or weight based adjustment of the mA/kV was utilized to reduce the radiation dose to as low as reasonably achievable. Skull base to C3: There is substantial hypertrophic left-sided C2/3 facet arthrosis with severe left-sided osseous C2/3 foraminal stenosis. No central canal stenosis. The right foramen is patent. C 3/4: There is substantial left-sided hypertrophic facet arthrosis with severe left-sided osseous foraminal stenosis. Right foramen is patent. There is soft tissue density occupying the left-sided lateral aspect of the canal, probably compromising the left-sided C4 nerve root. There is chronic flattening of the left side of the cord and the cord is mildly displaced to the right. There is mild transverse central canal stenosis. This soft tissue lesion has dimensions 1 cm transverse, 1.2 cm AP, 1.4 cm craniocaudal. C4/5: There is substantial left-sided facet arthrosis with severe left-sided osseous foraminal stenosis. There is a small central disc protrusion with mild ventral cord indentation but no significant central canal stenosis. Right foramen is patent. C 5/6: There is spondylosis and a dorsal central spondylotic disc protrusion. There is relative canal narrowing and chronic ventral cord indentation no significant central canal stenosis. There is bilateral moderate osseous foraminal stenosis. C6/7: Negative C7/T1: Negative No other visible soft tissue neck mass. There is bilateral carotid bifurcation region atherosclerotic calcification with findings concerning for significant bilateral carotid bifurcation stenosis. Pacemaker leads are seen in the upper chest. Incidental note is made of left-sided maxillary sinus chronic mucosal thickening. Additionally, there is a small somewhat irregular osteoma extending posteriorly from the mandibular mentum into the floor of mouth of doubtful clinical relevance. Impressions: 1. Multilevel degenerative spine disease with multilevel substantial left-sided hypertrophic facet arthrosis. Osseous foraminal stenoses detailed above should be correlated with corresponding specific radiculopathy. 2. Soft tissue density occupying the left-sided spinal canal at the C4 level probably compromises the left C4 nerve root. Consider close proximity to substantial facet arthrosis, and given the absence of acute destructive bone process, top consideration is unusual presentation of intracanalicular cervical level synovial cyst. Extended differential would include meningioma, nerve sheath tumor, and other malignancies all thought to be less likely. 3. Incidental carotid bifurcation atherosclerotic disease, concerning for hemodynamically significant. Consider follow-up vascular imaging when clinically appropriate. Signed: Kan Bahena MD Report Verified Date/Time: 10/09/2017 07:20:31 Reading Location: [facility] C013V Neuro Reading Room myelogram cervical (10/08/2017 4:15 PM) Specimen Performing Laboratory [facility] Narrative FINAL REPORT Procedure: Cervical myelogram Modality: Fluoroscopy Sedation: No Anesthesia: 1% lidocaine local Indication: Neck mass Discussion: Details of the procedure, risks, benefits, alternatives, and questions were discussed, and informed consent was obtained from the patient as documented on the chart. The patient was sterilely prepped and draped. 1% lidocaine was used for local anesthesia. Using fluoroscopic guidance, a 22-gauge needle was introduced into the thecal sac at the L2/3 level and 10 cc of 300 concentration iodinated contrast was infused. The patient was placed in Trendelenburg position with the neck extended and myelogram images of the cervical spine were then obtained. There was no procedure related complication. Fluoro time was 2.0 minutes. Total exposures 14 Myelogram: There is a left-sided lateral extradural impression on the thecal sac centered at the upper C4 level with mild cord displacement to the right. There is probable compromise of the left-sided C4 nerve root and perhaps the left-sided C5 nerve root at the C5 root sleeve shoulder. Overall central canal stenosis is estimated to be moderate in degree and transverse orientation. No myelographic block. Disposition: Patient Was transferred to CT for post myelogram imaging. Impression: Left-sided extradural impression on the thecal sac at the C4 level with mild transverse central canal stenosis. Signed: Kan Bahena MD Report Verified Date/Time:10/08/2017 16:34:37 Reading Location: [address] Neuro Reading Room Procedure Note Interface, External Ris In - 10/09/2017 10:02 PM CDT FINAL REPORT Procedure: Cervical myelogram Modality: Fluoroscopy Sedation: No Anesthesia: 1% lidocaine local Indication: Neck mass Discussion: Details of the procedure, risks, benefits, alternatives, and questions were discussed, and informed consent was obtained from the patient as documented on the chart. The patient was sterilely prepped and draped. 1% lidocaine was used for local anesthesia. Using fluoroscopic guidance, a 22-gauge needle was introduced into the thecal sac at the L2/3 level and 10 cc of 300 concentration iodinated contrast was infused. The patient was placed in Trendelenburg position with the neck extended and myelogram images of the cervical spine were then obtained. There was no procedure related complication. Fluoro time was 2.0 minutes. Total exposures 14 Myelogram: There is a left-sided lateral extradural impression on the thecal sac centered at the upper C4 level with mild cord displacement to the right. There is probable compromise of the left-sided C4 nerve root and perhaps the left-sided C5 nerve root at the C5 root sleeve shoulder. Overall central canal stenosis is estimated to be moderate in degree and transverse orientation. No myelographic block. Disposition: Patient Was transferred to CT for post myelogram imaging. Impression: Left-sided extradural impression on the thecal sac at the C4 level with mild transverse central canal stenosis. Signed: Kan Bahena MD Report Verified Date/Time: 10/08/2017 16:34:37 Reading Location: [facility] B1 C013V Neuro Reading Room Troponin I (10/08/2017 3:02 AM)Only the most recent of2 resultswithin the time period is included. Component Value Ref Range Troponin I 0.04 (H) 0.00 - 0.03 ng/mL Specimen Performing [place] [address] Narrative Troponin I (TnI) levels must be interpreted in the context of the presenting symptoms and the clinical findings. Elevated TnI levels indicate myocardial damage, but are not specific for ischemic heart disease. Elevated TnI levels are seen in patients with other cardiac conditions (including myocarditis and congestive heart failure), and slight TnI elevations occur in patients with other conditions, including sepsis, renal failure, acidosis, acute neurological disease, and persistent tachyarrhythmia. CBC with platelet count + automated diff (10/07/2017 4:45 AM) Component Value Ref Range WBC 7.5 3.5 - 10.5 K/L RBC 4.89 4.63 - 6.08 M/L Hemoglobin 15.5 13.7 - 17.5 GM/DL Hematocrit 46.7 40.1 - 51.0 % MCV 95.5 (H) 79.0 - 92.2 fL MCH 31.7 25.7 - 32.2 pg MCHC 33.2 32.3 - 36.5 GM/DL RDW 15.6 (H) 11.6 - 14.4 % Platelets 220 150 - 450 K/CU MM MPV 10.6 9.4 - 12.4 fL nRBC 0 0 - 0 /100 WBC % Neutros 65 % % Lymphs 22 % % Monos 10 % % Eos 2 % % Baso 1 % # Neutros 4.90 1.78 - 5.38 K/L # Lymphs 1.66 1.32 - 3.57 K/L # Monos 0.74 0.30 - 0.82 K/L # Eos 0.14 0.04 - 0.54 K/L # Baso 0.06 0.01 - 0.08 K/L Immature Granulocytes-Relative 0 0 - 1 % Specimen Performing Laboratory Blood [facility] [address] [address] CBC with platelet count + automated diff (10/07/2017 4:45 AM) Specimen Performing Laboratory Blood Narrative The following orders were created for panel order CBC with platelet count + automated diff. Procedure Abnormality Status --------- ------ CBC with platelet count ...[[id number]]AbnormalFinal result Please view results for these tests on the individual orders. after 10/09/2016
--- OUTSIDE RECORDS SUMMARY | 2017-10-10 16:47 | XMS REPORT ---
:1955 [facility] Address [address] [place] [address] Care Team Providers Name Role Phone DEON, DIANNE Unavailable Unavailable Problems This patient has no known problems. Allergies, Adverse Reactions, Alerts This patient has no known allergies or adverse reactions. Medications This patient has no known medications. Results Test Description Test Time Test Comments Text Results Atomic Results Result Comments CT, SPINE, 2017-10-09 10:09:00 FINAL REPORT PATIENT ID: CERVICAL, CONTRAST [id number] CT cervical spine with IV contrast Comparison: [...] other visible enhancing lesion. Signed: Kan Bahena Verified Date/Time: 10/09/2017 10:09:51 Reading Location: [address] Neuro Reading Room , MYELOGRAM, 2017-10-09 07:20:00 Reason for FINAL REPORT PATIENT ID: CERVICAL VIA LUMBAR exam:->post [id number] CT cervical INJECTION,W/FLUORO myelogram spine postmyelogram Comparison: None Reason for exam: [...] vascular imaging when clinically appropriate. Signed: Kan Bahenaeport Verified Date/Time: 10/09/2017 07:20:31 Reading Location: [facility] [id number] Neuro Reading Room PHORUS 2017-10-09 03:43:00 Test Item Value Reference Range Comments PHOSPHORUS (BEAKER) (test ytca=325) 3.7 mg/dL 2.3-4.7 [id number] 03:43:00 Test Item Value Reference Range Comments MAGNESIUM (BEAKER) (test pbcu=971) 2.0 mg/dL 1.6-2.6 BASIC METABOLIC [id number] 03:43:00 Test Item Value Reference Range Comments SODIUM (BEAKER) (test 134 meq/L 136-145 nwli=538) POTASSIUM (BEAKER) (test 4.8 meq/L 3.5-5.1 krgc=251) CHLORIDE (BEAKER) (test 98 meq/L 98-107 yszq=438) CO2 (BEAKER) (test 25 meq/L 22-29 lysy=419) BLOOD UREA NITROGEN 28 mg/dL 7-21 (BEAKER) (test izif=290) CREATININE (BEAKER) (test 1.02 mg/dL 0.57-1.25 ppdr=703) GLUCOSE RANDOM (BEAKER) 120 mg/dL 70-105 (test lsht=141) CALCIUM (BEAKER) (test 10.4 mg/dL 8.4-10.2 agwo=606) EGFR (BEAKER) (test 74 mL/min/1.73 sq m ESTIMATED GFR IS NOT obpu=2863) ACCURATE CREATININE CLEARANCE IN PREDICTING GLOMERULAR FILTRATION RATE. ESTIMATED GFR IS NOT APPLICABLE FOR DIALYSIS PATIENTS. FL, MYELOGRAM, [id number] 16:34:00Reason for exam:->cervical spine massFINAL REPORT Procedure: Cervical myelogram Modality : Fluoroscopy Sedation: No Anesthesia: 1% lidocaine local Indication: Neck mass Discussion: Details of the procedure, risks, benefits, alternatives, and questions were discussed, and informed consent was obtained from the patient as documented on the chart. The patient was sterilely prepped and draped. 1% lidocaine was used for local anesthesia. Using fluoroscopic guidance, a 22- gauge needle was introduced into the thecal sacat the L2/3 level and 10 cc of 300 concentration iodinated contrast was infused. The patient was placed in Trendelenburg position with the neck extended and myelogram images of the cervical spine were then obtained. There was no procedure related complication. Fluoro time was 2.0 minutes. Total exposures 14 Myelogram: There is a left- sided lateral extradural impression on the thecal sac [...] transverse central canal stenosis. Signed: Kan Bahena Verified Date/Time: 10/08/2017 16:34:37 Reading Location: [address] Neuro Reading Room 04 :34 PMTROPONIN [id number] 03:40:00 Test Item Value Reference Range Comments TROPONIN I (BEAKER) (test bvui=750) 0.04 ng/mL 0.00-0.03 Troponin I (TnI) levels must be interpreted [...] failure, acidosis, acute neurological disease, and persistent tachyarrhythmia.[id number] 03:35:00 Test Item Value Reference Range Comments PHOSPHORUS (BEAKER) (test druw=130) 4.1 mg/dL 2.3-4.7 [id number] 03:35:00 Test Item Value Reference Range Comments MAGNESIUM (BEAKER) (test kiom=367) 2.1 mg/dL 1.6-2.6 BASIC METABOLIC [id number] 03:35:00 Test Item Value Reference Range Comments SODIUM (BEAKER) (test 136 meq/L 136-145 oovx=860) POTASSIUM (BEAKER) (test 4.4 meq/L 3.5-5.1 kgsk=188) CHLORIDE (BEAKER) (test 103 meq/L 98-107 rqbm=538) CO2 (BEAKER) (test 23 meq/L 22-29 hlyv=577) BLOOD UREA NITROGEN 33 mg/dL 7-21 (BEAKER) (test gnll=882) CREATININE (BEAKER) (test 1.11 mg/dL 0.57-1.25 zxui=390) GLUCOSE RANDOM (BEAKER) 114 mg/dL 70-105 (test jovh=139) CALCIUM (BEAKER) (test 10.4 mg/dL 8.4-10.2 yimf=505) EGFR (BEAKER) (test 67 mL/min/1.73 sq m ESTIMATED GFR IS NOT glsj=7319) ACCURATE CREATININE CLEARANCE IN PREDICTING GLOMERULAR FILTRATION RATE. ESTIMATED GFR IS NOT APPLICABLE FOR DIALYSIS PATIENTS. TROPONIN [id number] 07:00:00 Test Item Value Reference Range Comments TROPONIN I (BEAKER) (test yrzv=680) 0.03 ng/mL 0.00-0.03 Troponin I (TnI) levels must be interpreted [...] failure, acidosis, acute neurological disease, and persistent tachyarrhythmia.[id number] 06:52:00 Test Item Value Reference Range Comments PHOSPHORUS (BEAKER) (test rqfy=216) 3.7 mg/dL 2.3-4.7 [id number] 06:52:00 Test Item Value Reference Range Comments MAGNESIUM (BEAKER) (test wiof=731) 2.1 mg/dL 1.6-2.6 BASIC METABOLIC [id number] 06:16:00 Test Item Value Reference Range Comments SODIUM (BEAKER) (test 134 meq/L 136-145 sgpz=934) POTASSIUM (BEAKER) (test 4.4 meq/L 3.5-5.1 tlyt=296) CHLORIDE (BEAKER) (test 102 meq/L 98-107 phic=824) CO2 (BEAKER) (test 21 meq/L 22-29 ehgv=971) BLOOD UREA NITROGEN 28 mg/dL 7-21 (BEAKER) (test rnfb=078) CREATININE (BEAKER) (test 1.03 mg/dL 0.57-1.25 miod=745) GLUCOSE RANDOM (BEAKER) 107 mg/dL 70-105 (test sogc=836) CALCIUM (BEAKER) (test 9.8 mg/dL 8.4-10.2 mdnj=380) EGFR (BEAKER) (test 73 mL/min/1.73 sq m ESTIMATED GFR IS NOT fpep=2509) ACCURATE CREATININE CLEARANCE IN PREDICTING GLOMERULAR FILTRATION RATE. ESTIMATED GFR IS NOT APPLICABLE FOR DIALYSIS PATIENTS. CBC W/PLT COUNT & AUTO [id number] 05:45:00 Test Item Value Reference Range Comments WHITE BLOOD CELL COUNT (BEAKER) (test ldhx=251) 7.5 K/ L 3.5-10.5 RED BLOOD CELL COUNT (BEAKER) (test rrzj=890) 4.89 M/ L 4.63-6.08 HEMOGLOBIN (BEAKER) (test lpni=545) 15.5 GM/DL 13.7-17.5 HEMATOCRIT (BEAKER) (test ktmk=258) 46.7 % 40.1-51.0 MEAN CORPUSCULAR VOLUME (BEAKER) (test shww=100) 95.5 fL 79.0-92.2 MEAN CORPUSCULAR HEMOGLOBIN (BEAKER) (test 31.7 pg 25.7-32.2 vgic=831) MEAN CORPUSCULAR HEMOGLOBIN CONC (BEAKER) (test 33.2 GM/DL 32.3-36.5 qfhj=943) RED CELL DISTRIBUTION WIDTH (BEAKER) (test 15.6 % 11.6-14.4 hntj=058) PLATELET COUNT (BEAKER) (test flow=131) 220 K/CU MM 150-450 MEAN PLATELET VOLUME (BEAKER) (test omyh=596) 10.6 fL 9.4-12.4 NUCLEATED RED BLOOD CELLS (BEAKER) (test 0 /100 WBC 0-0 pksg=370) NEUTROPHILS RELATIVE PERCENT (BEAKER) (test 65 % abei=167) LYMPHOCYTES RELATIVE PERCENT (BEAKER) (test 22 % xssw=984) MONOCYTES RELATIVE PERCENT (BEAKER) (test 10 % yvym=693) EOSINOPHILS RELATIVE PERCENT (BEAKER) (test 2 % lmxa=312) BASOPHILS RELATIVE PERCENT (BEAKER) (test 1 % mhda=277) NEUTROPHILS ABSOLUTE COUNT (BEAKER) (test 4.90 K/ L 1.78-5.38 fayq=243) LYMPHOCYTES ABSOLUTE COUNT (BEAKER) (test 1.66 K/ L 1.32-3.57 psmg=070) MONOCYTES ABSOLUTE COUNT (BEAKER) (test 0.74 K/ L 0.30-0.82 jjgq=813) EOSINOPHILS ABSOLUTE COUNT (BEAKER) (test 0.14 K/ L 0.04-0.54 cztp=909) BASOPHILS ABSOLUTE COUNT (BEAKER) (test 0.06 K/ L 0.01-0.08 gfmn=252) IMMATURE GRANULOCYTES-RELATIVE PERCENT (BEAKER) 0 % 0-1 (test denu=7602)
[2017-10-10 17:21] LABS: Absolute Lymphocytes (CBC) 1.4 K/uL (0.7-4.9); Absolute Monocytes 1.1 K/uL (0.1-1.3); Absolute Neutrophil 5.6 K/uL (1.8-8.0); Basophils % 0.6 % (0-1.3); Eosinophils % 1.2 % (0-4.4); Hematocrit 49.1 % (39.6-49.0); Lymphocytes % 16.7 % (15.3-44.8); MCH 32.2 pg (27.0-35.0); MCV 97.1 fL (80-100); MPV 9.5 fL (7.6-11.3); Monocytes % 13.1 % (3.3-12.3); RBC Red Blood Cell Count 5.06 M/uL (4.33-5.43)
[2017-10-10 17:24] LABS: Protime INR 1.08
[2017-10-10 17:32] LABS: Potassium 4.1 mEq/L (3.6-5.0)
[2017-10-10 17:38] LABS: Bilirubin Direct 0.3 mg/dL (0-0.2); Bilirubin Total 1.6 mg/dL (0.3-1.2); Magnesium 1.8 mg/dL (1.8-2.5); Protein, Total 8.3 g/dL (6.0-8.3)
[2017-10-10] MEDS ORDERED: ONDANSETRON 4 MG/2 ML VIAL IV PRN (18:01)
[2017-10-10] MEDS ORDERED: ACETAMINOPHEN 500 MG TAB PO PRN (18:01)
[2017-10-10] MEDS ORDERED: ZOLPIDEM TARTRATE 5 MG TABLET PO PRN (18:01)
--- NOTE | 2017-10-10 18:07 | EDPHYS ---
Physician Documentation [facility] Name: Umair Brown Age: 62 yrs Sex: Male : 1955 Arrival Date: 10/10/2017 Time: 16:50 Bed 4 Private MD: ED Physician Yusuf Cai HPI: 10/10 17:58 This 62 yrs old Male presents to ER via EMS with complaints of Syncope. gs 17:58 The patient has experienced syncope, became unresponsive, collapsed. Onset: The gs symptoms/episode began/occurred suddenly, just prior to arrival. Duration: This was a single episode, that lasted 1 minute(s). Context: occurred pharmacy after defib went off. Associated injury: The patient did not suffer any apparent associated injury. Associated signs and symptoms: Pertinent positives: dizziness. Current symptoms: Currently, the patient is not experiencing any symptoms. The patient has experienced similar episodes in the past, a few times. Historical: - Allergies: 16:58 PENICILLINS; ae1 - Home Meds: 16:58 atorvastatin 80 mg Oral tab 1 tab once daily [Active]; furosemide 20 mg Oral tab 1 tab ae1 2 times per day [Active]; isosorbide dinitrate 40 mg Oral TbER 1 tab 2 times per day [Active]; metoprolol tartrate 50 mg Oral tab 1 tab 2 times per day [Active]; Plavix 75 mg Oral tab 1 tab once daily [Active]; potassium chloride 20 mEq Oral TbTQ 1 tab once daily [Active]; - PMHx: 16:58 Hyperlipidemia; Hypertension; ae1 - Immunization history:: Flu vaccine is up to date. - Social history:: Smoking status: Patient uses tobacco products, cigars, Patient uses. ROS: 17:58 All other systems are negative. gs 22:46 Eyes: Negative for injury, pain, redness, and discharge. pkl Exam: 17:58 Head/Face: Normocephalic, atraumatic. Eyes: Pupils equal round and reactive to light, gs extra-ocular motions intact. Lids and lashes normal. Conjunctiva and sclera are non-icteric and not injected. Cornea within normal limits. Periorbital areas with no swelling, redness, or edema. ENT: Nares patent. No nasal discharge, no septal abnormalities noted. Tympanic membranes are normal and external auditory canals are clear. Oropharynx with no redness, swelling, or masses, exudates, or evidence of obstruction, uvula midline. Mucous membranes moist. Neck: Trachea midline, no thyromegaly or masses palpated, and no cervical lymphadenopathy. Supple, full range of motion without nuchal rigidity, or vertebral point tenderness. No Meningismus. Chest/axilla: Normal chest wall appearance and motion. Nontender with no deformity. No lesions are appreciated. Respiratory: Lungs have equal breath sounds bilaterally, clear to auscultation and percussion. No rales, rhonchi or wheezes noted. No increased work of breathing, no retractions or nasal flaring. Abdomen/GI: Soft, non-tender, with normal bowel sounds. No distension or tympany. No guarding or rebound. No evidence of tenderness throughout. Back: No spinal tenderness. No costovertebral tenderness. Full range of motion. Skin: Warm, dry with normal turgor. Normal color with no rashes, no lesions, and no evidence of cellulitis. MS/ Extremity: Pulses equal, no cyanosis. Neurovascular intact. Full, normal range of motion. 17:58 Cardiovascular: Rate: tachycardic, Rhythm: regular, Pulses: no pulse deficits are appreciated. 17:58 ECG was reviewed by the Attending Physician. 17:58 Neuro: Orientation: is normal, Mentation: is normal, Memory: is normal, Cranial nerves: CN II- XII are normal as tested, Motor: strength is normal, Sensation: is normal. Vital Signs: 17:00 BP 124 / 76; Pulse 105; Resp 20; Temp 97.6(O); Pulse Ox 98% on 2 lpm NC; Pain 0/10; ae1 17:42 BP 120 / 75; Pulse 108; Resp 15; Pulse Ox 98% on 2 lpm NC; Pain 0/10; ae1 19:36 BP 129 / 93; Pulse 101; Resp 18 S; Pulse Ox 100% on R/A; ea 20:17 BP 121 / 63; Pulse 105; Resp 18; Pulse Ox 100% on R/A; ea 20:36 BP 107 / 84; Pulse 96; Resp 18; Pulse Ox 100% on R/A; ea 21:30 BP 110 / 68; Pulse 89; Resp 20; Pulse Ox 98% on R/A; aa1 22:58 BP 116 / 70; Pulse 88; Resp 18 S; Pulse Ox 99% on R/A; ea 10/11 00:28 BP 118 / 68; Pulse 89; Resp 18 S; Temp 98.0(O); Pulse Ox 99% on R/A; Pain 0/10; ea MDM: 10/10 16:58 Patient medically screened. 17:58 Differential Diagnosis: cardiac arrhythmia, drug effect, idiopathic syncope, pacemaker gs aberrancy. Data reviewed: vital signs, nurses notes. Response to treatment: the patient's symptoms have markedly improved after treatment, and as a result, I will admit patient. ED course: peyman from [email or web address] ([email or web address]) will interrogate tonite or tomorrow. 10/10 16:53 Order name: Basic Metabolic Panel; Complete Time: 17:43 10/10 16:53 Order name: CBC with Diff; Complete Time: 17:43 10/10 16:53 Order name: LFT's; Complete Time: 17:43 10/10 16:53 Order name: Magnesium; Complete Time: 17:43 10/10 16:53 Order name: PT-INR; Complete Time: 17:43 10/10 16:53 Order name: Troponin (emerg Dept Use Only); Complete Time: 17:43 10/10 18:04 Order name: BNP B-Type Natriuretic Peptide [facility] 10/10 18:04 Order name: CKMB Creatine Kinase MB [facility] 10/10 18:04 Order name: Creatine Phosphokinase [facility] 10/10 18:04 Order name: Magnesium [facility] 10/10 18:04 Order name: Magnesium [facility] 10/10 18:04 Order name: Troponin I [facility] 10/10 18:04 Order name: Troponin I [facility] 10/10 18:04 Order name: Troponin I [facility] 10/10 16:53 Order name: EKG; Complete Time: 16:53 10/10 16:53 Order name: Cardiac monitoring; Complete Time: 17:08 10/10 16:53 Order name: EKG - Nurse/Tech; Complete Time: 17:08 10/10 16:53 Order name: IV Saline Lock; Complete Time: 17:08 10/10 16:53 Order name: Labs collected and sent; Complete Time: 19:03 10/10 16:53 Order name: O2 Per Protocol; Complete Time: 17:08 10/10 16:53 Order name: O2 Sat Monitoring; Complete Time: 17:08 10/10 16:53 Order name: Urine Dipstick-Ancillary (obtain specimen); Complete Time: 20:51 10/10 18:04 Order name: Heart Healthy [facility] 10/10 18:04 Order name: EKG Electrocardiogram [facility] 10/10 18:04 Order name: Troponin I [facility] 10/10 20:52 Order name: Urine Dipstick--Ancillary (enter results) oe 10/10 20:56 Order name: Urine Dipstick-Ancillary; Complete Time: 22:47 EDMS EC:58 Rate is 104 beats/min. Rhythm is regular. QRS interval is prolonged. QT interval is gs prolonged. T waves are Normal. No ST changes noted. Clinical impression: Abnormal EKG without significant change. Interpreted by me. Administered Medications: 20:15 Drug: amiodarone 150 mg Volume: 100 ml; Route: IVPB; Infused Over: 10 mins; Site: left ea antecubital; 20:28 Follow up: Response: No adverse reaction; IV Status: Completed infusion ea 20:15 Drug: amiodarone 900 mg, D5W 500 ml Route: IVPB; Rate: 1 mg/min; Site: left antecubital;ea 10/11 00:28 Follow up: IV Status: Infusion continued upon transfer ea Point of Care Testing: Blood Glucose: 10/10 16:52 Blood Glucose: 152 mg/dL; ae1 Ranges: Critical Glucose Levels:Adult <50 mg/dl or >400 mg/dl <40 mg/dl or >180 mg/dl Disposition: 10/10/17 22:46 Transfer ordered to [facility]. Diagnosis is Recurrent V. Tach. Defibrillator malfunction.. - Reason for transfer: Higher level of care. - Accepting physician is Dr. Xie. - Condition is Stable. - Problem is new. - Symptoms have improved. Signatures: Dispatcher [employer] [facility] Yusuf Cai MD MD pkl Solis, Maria ms Page, Corey, PA PA cp Elliott, Andrea, RN RN ae1 Colleen Resendez RN RN ea Starr, Gregory, MD MD gs
--- NOTE | 2017-10-10 18:07 | ER ---
Nurse's Notes [facility] Name: Umair Brown Age: 62 yrs Sex: Male : 1955 Arrival Date: 10/10/2017 Time: 16:50 Bed 4 Private MD: Diagnosis: Recurrent V. Tach. Defibrillator malfunction. Presentation: 10/10 16:53 Presenting complaint: EMS states: EMS states patient was standing in line for his ae1 prescriptions when he suddenly felt dizzy and his implanted defibrillator "shocked" him 3 times. Patient a \\T\\o x4, denies pain. Transition of care: patient was not received from another setting of care. Onset of symptoms was October 10, 2017 at 16:20. Care prior to arrival: Medication(s) given: oxygen applied via nasal cannula at 2 liters. IV initiated. 20 GA, in the left antecubital area, Glucose check: 137. 16:53 Method Of Arrival: EMS: [facility] ae1 16:53 Acuity: ARINA 2 ae1 Triage Assessment: 17:04 General: Appears in no apparent distress. uncomfortable, unkempt, Behavior is ae1 cooperative, agitated. Pain: Denies pain. EENT: wears glasses. . Neuro: Reports Patient reports he felt dizzy right before he was shocked, denies dizziness at this time. . Cardiovascular: Heart tones S1 S2 present skin is cool and dry.. Cardiovascular: Denies chest pain, diaphoresis, lightheadedness, shortness of breath, vomiting, Rhythm is regular. Respiratory: Airway is patent Respiratory effort is even, unlabored, Respiratory pattern is regular, Breath sounds are clear bilaterally. Breath sounds are diminished bilaterally. in left posterior lower lobe, right posterior middle lobe and right posterior lower lobe. GI: No signs and/or symptoms were reported involving the gastrointestinal system. Patient currently denies nausea, vomiting. : No signs and/or symptoms were reported regarding the genitourinary system. Derm: Skin is pale. Musculoskeletal: No signs and/or symptoms reported regarding the musculoskeletal system. 17:04 Derm: Bruising that is dark purple, on suprapubic area, posterior aspect of left ae1 lateral abdomen and right lower quadrant. Historical: - Allergies: 16:58 PENICILLINS; ae1 - Home Meds: 16:58 atorvastatin 80 mg Oral tab 1 tab once daily [Active]; furosemide 20 mg Oral tab 1 tab ae1 2 times per day [Active]; isosorbide dinitrate 40 mg Oral TbER 1 tab 2 times per day [Active]; metoprolol tartrate 50 mg Oral tab 1 tab 2 times per day [Active]; Plavix 75 mg Oral tab 1 tab once daily [Active]; potassium chloride 20 mEq Oral TbTQ 1 tab once daily [Active]; - PMHx: 16:58 Hyperlipidemia; Hypertension; ae1 - Immunization history:: Flu vaccine is up to date. - Social history:: Smoking status: Patient uses tobacco products, cigars, Patient uses. Screenin:59 Abuse screen: Denies threats or abuse. Nutritional screening: No deficits noted. ae1 Tuberculosis screening: No symptoms or risk factors identified. Fall Risk Fall in past 12 months (25 points). Secondary diagnosis (15 points) Patient has implanted defibrillator. . IV access (20 points). Ambulatory Aid- None/Bed Rest/Nurse Assist (0 pts). Gait- Normal/Bed Rest/Wheelchair (0 pts) Mental Status- Oriented to own ability (0 pts). Assessment: 17:30 Reassessment: Provider at bedside discussing plan of care. ae1 17:40 Reassessment: see full triage assessment. ae1 19:28 General: Appears in no apparent distress. Behavior is calm, cooperative, appropriate ea for age. Pain: Denies pain. Neuro: Level of Consciousness is awake, alert, obeys commands, Oriented to person, place, time. Cardiovascular: Heart tones present Patient's skin is warm and dry. Respiratory: Airway is patent Respiratory effort is even, unlabored, Respiratory pattern is regular, symmetrical, Breath sounds are clear bilaterally. GI: Abdomen is obese, Bowel sounds present X 4 quads. GI: No signs and/or symptoms were reported involving the gastrointestinal system. : No signs and/or symptoms were reported regarding the genitourinary system. EENT: No signs and/or symptoms were reported regarding the EENT system. Derm: Skin is pink, warm \\T\\ dry. 19:59 Reassessment: Patient appears in no apparent distress at this time. Patient and/or aa1 family updated on plan of care and expected duration. Pain level reassessed. Patient is alert, oriented x 3, equal unlabored respirations, skin warm/dry/pink. Dr. Cai at bedside discussing POC with pt. 20:16 Reassessment: Patient and/or family updated on plan of care and expected duration. Pain ea level reassessed. Patient is alert, oriented x 3, equal unlabored respirations, skin warm/dry/pink. 20:54 Reassessment: Patient and/or family updated on plan of care and expected duration. Pain ea level reassessed. Patient is alert, oriented x 3, equal unlabored respirations, skin warm/dry/pink. Pt stated he got his IV snagged and accidently pulled out his IV, bleeding stopped, catheter intact, pressure dressing applied, pt tolerated well. 22:02 Reassessment: Patient appears in no apparent distress at this time. Patient and/or aa1 family updated on plan of care and expected duration. Pain level reassessed. Patient is alert, oriented x 3, equal unlabored respirations, skin warm/dry/pink. Awaiting transfer to [place]. 23:29 Reassessment: Patient and/or family updated on plan of care and expected duration. Pain ea level reassessed. Patient is alert, oriented x 3, equal unlabored respirations, skin warm/dry/pink. Report called to Tom at the [facility] in [place]. 10/11 00:06 Reassessment: Patient and/or family updated on plan of care and expected duration. Pain ea level reassessed. Patient is alert, oriented x 3, equal unlabored respirations, skin warm/dry/pink. [facility] at facility for transfer. Vital Signs: 10/10 17:00 BP 124 / 76; Pulse 105; Resp 20; Temp 97.6(O); Pulse Ox 98% on 2 lpm NC; Pain 0/10; ae1 17:42 BP 120 / 75; Pulse 108; Resp 15; Pulse Ox 98% on 2 lpm NC; Pain 0/10; ae1 19:36 BP 129 / 93; Pulse 101; Resp 18 S; Pulse Ox 100% on R/A; ea 20:17 BP 121 / 63; Pulse 105; Resp 18; Pulse Ox 100% on R/A; ea 20:36 BP 107 / 84; Pulse 96; Resp 18; Pulse Ox 100% on R/A; ea 21:30 BP 110 / 68; Pulse 89; Resp 20; Pulse Ox 98% on R/A; aa1 22:58 BP 116 / 70; Pulse 88; Resp 18 S; Pulse Ox 99% on R/A; ea 10/11 00:28 BP 118 / 68; Pulse 89; Resp 18 S; Temp 98.0(O); Pulse Ox 99% on R/A; Pain 0/10; ea ED Course: 10/10 16:50 Patient arrived in ED. jl7 16:51 Jim Monson MD is Attending Physician. gs 16:52 Tiago Gunderson RN is Primary Nurse. ae1 16:56 Triage completed. ae1 16:59 Placed in gown. Bed in low position. Call light in reach. Side rails up X2. Cardiac ae1 monitor on. Pulse ox on. NIBP on. 17:00 Arm band placed on left wrist. EKG completed in triage. Results shown to MD. ae1 17:43 Maintain EMS IV. Dressing intact. Good blood return noted. Site clean \\T\\ dry. Gauge \\T\\ ae 1 site: 20 left antecubital . 18:06 Daryl Dahl MD is Hospitalizing Provider. gs 19:31 No provider procedures requiring assistance completed. Patient admitted, IV remains in ea place. 20:04 Attending Physician role handed off by Jim Monson MD pkl 20:04 Yusuf Cai MD is Attending Physician. pkl 20:56 Inserted saline lock: 20 gauge in right antecubital area, using aseptic technique. ea Administered Medications: 20:15 Drug: amiodarone 150 mg Volume: 100 ml; Route: IVPB; Infused Over: 10 mins; Site: left ea antecubital; 20:28 Follow up: Response: No adverse reaction; IV Status: Completed infusion ea 20:15 Drug: amiodarone 900 mg, D5W 500 ml Route: IVPB; Rate: 1 mg/min; Site: left antecubital;ea 10/11 00:28 Follow up: IV Status: Infusion continued upon transfer ea Point of Care Testing: Blood Glucose: 10/10 16:52 Blood Glucose: 152 mg/dL; ae1 Ranges: Outcome: 18:07 Decision to Hospitalize by Provider. gs 19:31 Instructed on the need for admit, Demonstrated understanding of instructions. ea 22:46 ER care complete, transfer ordered by . pkl 23:00 Instructed on the need for transfer, Demonstrated understanding of instructions. ea 10/11 00:28 Transferred by ground EMS to [facility] Transfer form completed. ea 00:37 Condition: stable ea 00:40 Patient left the ED. ea Signatures: Sofia Roberto RN RN aa1 Yusuf Cai MD MD pkl Tiago Gunderson RN RN ae1 Bartolome Negron RN RN jl7 Colleen Resendez RN RN ea Starr, Gregory, MD MD Corrections: (The following items were deleted from the chart) 10/10 17:04 16:53 Acuity: ARINA 3 ae1 ae1 17:43 17:00 BP 124 / 76; Pulse 105bpm; Resp 20bpm; Pulse Ox 98% 2 lpm Nasal Cannula; Temp ae1 97.6F Oral; ae1 10/11 00:42 10/10 23:00 Instructed on the need for admit, Demonstrated understanding of ea instructions, ea
[2017-10-10] MEDS ORDERED: HYDROCODONE/APAP 10/325 TAB PO PRN (18:33)
[2017-10-10] MEDS ORDERED: AMIODARONE IN DEXTROSE,ISO-OSM 360 MG/200 ML BAG IV ONE (20:10)
[2017-10-10] MEDS ORDERED: AMIODARONE HCL 150 MG/3 ML INJ IV ONE (20:13)
[2017-10-10 20:56] LABS: Urine Blood NEGATIVE (NEG); Urine Glucose NEGATIVE (NEG); Urine Protein 2+ (NEG); Urine Specific Gravity >1.030 (1.005-1.030)
[2017-10-10] MEDS ORDERED: LISINOPRIL 20 MG TAB PO SCH (21:00)
[2017-10-10] MEDS ORDERED: CLOPIDOGREL 75 MG TABLET PO SCH (21:00)
[2017-10-10] MEDS ORDERED: ATORVASTATIN 80 MG TAB PO SCH (21:00)
[2017-10-10] MEDS ORDERED: ENOXAPARIN 40 MG/0.4 ML SQ SCH (21:00)
[2017-10-10] MEDS ORDERED: FUROSEMIDE 20 MG TABLET PO SCH (21:00)
[2017-10-10] MEDS ORDERED: TRAZODONE 50 MG TABLET PO SCH (21:00)
[2017-10-10] MEDS ORDERED: ISOSORBIDE DINIT 20 MG TAB PO SCH (21:00)
[2017-10-11] MEDS ORDERED: AMIODARONE Inj 900 MG/18 mL (=50 MG/ML) VIAL IV ONE (00:34)
--- NOTE | 2017-10-11 06:07 | HP ---
Date of Admission: 10/10/2017 Reason For Admission: Pacemaker fired. History Of Present Illness: This is a 62-year-old gentleman with history of multiple medical problem s including hypertension, hyperlipidemia, coronary artery disease, status post CABG with severe CHF, ejection fraction 13% to 15%, status post pacemaker placement, was admitted recently to the emergency room with progressive shortness of breath, chest pain for 3 weeks on the 05 of October. At that lisa e, he was seen by Cardiology and transferred to [facility] for questionable surgical lesion on the 4th vertebra and I do not have the records from [facility]. The patient did not have any proced ure there. He was seen by Neurosurgery and had MRI and they advised him no surgical intervention fracisco isbell. He was discharged home with Dilaudid. 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 He overdid, I am n ot sure what, but he stated that he overdid what he was doing. He smoked a cigar and his pacemaker f ired and the patient presented to the emergency room. In the ER, he was evaluated. The pacemaker co josé luisruben was contacted. The rep will be coming tonight or tomorrow to interrogate that. The patient re fused to be transferred to [facility]. He denied any chest pain or shortness of breath. No a bdominal pain. His labs in the ER showed CBC within normal. Chemistry within normal. Troponin is l ess than 0.03. Sodium 134, chloride of 95, BUN of 29, creatinine 1.5, glucose 168, calcium 10.6, tot al bilirubin of 1.6. EKG done and showed no specific findings. Currently, he is lying in bed. He i s comfortable. He stated that if the rep does not show up by tomorrow, he will leave and he will erik ve AMA. Review of systems is otherwise as below. Past Medical History: Significant for hypertension, hyperlipidemia, CHF, CABG with 4 bypass. Past Surgical History: CABG. Social History: The patient is single. He has 2 kids. He does smoke cigar, but he does not smoke c igarettes. He does drink socially. Does not use any drugs. Family History: Both father and mother . Mother from cancer. Father from heart disea se and hypertension. Medications: From his previous admission significant for Lipitor 1 tab once a day, Plavix 75 mg once a day, Lasix 1 tablet 40 mg twice a day, Imdur 1 tablet twice a day, lisinopril 1 tablet twice a day , metoprolol 50 mg twice a day, potassium bicarb 20 mEq 2 tablets at bedtime, trazodone 1 tablet at b edtime. Review of Systems: Denies any fever, chills, night sweats, dizziness, lightheaded, headache, blurred vision, but accordi ng to the ER physician, he reported that he had a syncopal episode which the patient did not recall. There was no chest pain, palpitation, PND, or orthopnea. No cough or sputum. No nausea or vomiting . No abdominal pain. No change in bowel movement, diarrhea, constipation, dysuria, frequency, urgen cy, hematuria. There is no history of depression, anxiety, seizure, or stroke. Physical Examination: Vital Signs: Currently vital signs; blood pressure is 124/76, respiratory rate 20, pulse 105, temper ature 97.6, saturating 98% on 2 L nasal cannula. General: The patient is alert, oriented x3. Does not look in any distress. HEENT: Atraumatic, normocephalic. PERRLA. Oral mucosa is moist. Neck: Supple. No JVD. No carotid bruits. Chest: Clear to auscultation. Good air entry. Heart: Regular rate and rhythm. S1, S2 normal. No gallop or murmur. Abdomen: Soft, nontender. No masses. No hepatosplenomegaly. Positive bowel sounds. Extremities: No clubbing, cyanosis, or edema. No calf tenderness. Neurologic: Grossly intact. Cranial nerve exam 2 through 12 intact. Normal sensation. Normal refl exes. Normal muscle strength. Laboratory Data: Labs done in the ER showed CBC within normal. CMP with sodium 134, chloride 95, BU N of 29, creatinine of 1.5, calcium 10.6, bilirubin of 1.6, direct bilirubin of 0.3. Troponin negati ve. Assessment And Plan: This is a 62-year-old gentleman with history of multiple medical problems, pres ented with syncopal episode and pacemaker firing. 1.Syncopal episode with pacemaker firing. We will proceed with Cardiology consult in a.m. The akua ent has a very low EF. His blood pressure at this point normal. He has no change in mental status. We will get the pacemaker interrogated and we will get Cardiology consult in a.m. In the meantime, we will continue all his home medication as before. 2.Hypertension, well controlled, on home medication. 3.Hyperlipidemia. We will continue on statin. 4.We will try to obtain a copy of discharge summary from [facility] to find out what exactly procedure done after patient was transferred last week there. 5.The patient will be on DVT prophylaxis, Lovenox. MALLORIE/NORA Voice ID: [id number]
[2017-10-11] MEDS ORDERED: ENOXAPARIN 40 MG/0.4 ML SQ SCH (09:00)
--- NOTE | 2017-10-11 12:46 | EKG ---
Test Date: 2017-10-10 Test Time: 16:50:21 Snuff Container Inspector: BOLA MEASUREMENT RESULTS: Intervals: Rate: 104 RI: 124 QRSD: 166 QT: 406 QTc: 533 [place]: P: 86 RI: 124 QRS: 189 T: -26 INTERPRETIVE STATEMENTS: Atrial-sensed ventricular-paced rhythm tracking sinus rhythm with premature ventricular complexes Biventricular pacemaker Compared to ECG 10/05/2017 10:08:34 premature ventricular complexes are now present Electronically Signed On 10-11-17 12:46:13 CDT by Jorge A Loyd
== END 2017-10-11 00:40 ==
LOC: ER 16:45 → SUPCPDRO 16:45 → ERHOLD 18:07 → UNDOADMOB 18:07 → 4TH 19:07 → ERHOLD 19:07
DX: I47.2 Ventricular tachycardia (principal); T82.118A Breakdown (mechanical) of other cardiac electronic device, initial encounter; I10 Essential (primary) hypertension; E78.5 Hyperlipidemia, unspecified; Z72.0 Tobacco use; Z79.01 Long term (current) use of anticoagulants; Z88.0 Allergy status to penicillin
CPT/HCPCS: 36415; 80048; 80076; 81003; 82962; 83735; 84484; 85025; 85610; 93005; 96365; 96366; 99285; J0282 ×2; J7060